=== PATIENT | female | born 1935 | race Caucasian/White ===

== ENCOUNTER 2019-10-12 06:18 | Inpatient (IN) | payer MEDICARE, OTHER ==
[~2019-10-12] VITALS: Ht 167.6 cm; Wt 66.7 kg
[~2019-10-12 06:18] MED LIST: ADULT LOW DOSE81 MG PO; ADVAIR HFA 45MC1 AER INH; AMBIEN; AMBIEN 5 MG TABL5 M1 PO; ASPIR 8181 MG PO; ATENOLOL 25 MG25 M1; AUGMENTIN 875875 MG PO; B COMPLEX-VITA1 EACH; BENTYL 10 MG CA10 M1 PO; CARVEDILOL3.125 MG PO; CARVEDILOL6.25 MG PO; CIPRO500 MG PO; D3 DOTS2000 UNIT PO; DIAZEPAM 5 MG5 M1; DYAZIDE 37.5-21 EACH PO; FLAGYL500 MG PO; FLEXERIL PO; FOSAMAX 70 MG T70 M1 PO; FOSAMAX 70 MG T70 MG PO; HYDREA 500 MG500 M1; HYDREA 500 MG500 M1 PO; HYDROCODONE-AP1 EAC6 PO; HYDROCODONE-APA1 TA1 PO; IBUPROFEN 800800 M1; IBUPROFEN 800800 M1 PO; IMODIUM A-D1 MG/5 ML; LIPITOR20 MG; LISINOPRIL10 MG PO; LISINOPRIL2.5 MG PO; MAXZIDE-25 MG1 EACH PO; MEDROLDOSEPACK PO; MOTION RELIEF25 MG PO; MUCINEX TA600 MG/TA2 PO; MULTI VITAMIN1 EACH; MULTIVITAMINS PO; NEXIUM40 MG PO; NORCO 5-325 TA1 EAC1 PO; NORCO 5-325 TA1 EACH PO; ONDANSETRON HCL4 M2 PO; OXYCODONE HCL5 M1; PAXIL 20 MG TAB20 M1; PAXIL10 MG PO; PAXIL20 MG PO; PHENERGAN 25 MG25 MG PO; PRAVASTATIN SOD40 MG PO; TESSALON PERLE100 MG PO; TRAMADOL 50 MG50 MG PO; TRIAMTERENE W/1 EACH; ULTRAM 50MG TAB50 MG PO; VICODIN 5-5001 EACH; VITAMIN D400 UNI1; XANAX 0.25 MG0.25 MG PO; ZOFRAN ODT4 MG PO
[2019-10-12 06:21] VITALS: BP 171/87
[2019-10-12 06:47] LABS: CALCIUM 9.3 mg/dL (8.5-10.1); POTASSIUM 4.1 mmol/L (3.5-5.1)
[2019-10-12 06:51] LABS: ALBUMIN 3.8 g/dL (3.4-5.0); TOTAL BILIRUBIN 0.5 mg/dL (<0.1-1.0); TOTAL PROTEIN 8.8 g/dL (6.4-8.2)
[2019-10-12 06:59] LABS: ABSOLUTE BASOPHILS 0.1 thou/uL (0.0-0.2); ABSOLUTE EOSINOPHILS 0.1 thou/uL (0.0-0.7); ABSOLUTE LYMPHOCYTES 1.6 thou/uL (0.8-5.3); ABSOLUTE MONOCYTES 0.4 thou/uL (0.0-1.2); ABSOLUTE NEUTROPHILS 2.9 thou/uL (1.6-8.1); BASOPHILS 1.4 %; EOSINOPHILS 1.4 %; HEMATOCRIT 49.6 % (37.0-47.0); HEMOGLOBIN 16.6 gm/dL (12.0-15.0); LYMPHOCYTES 32.6 %; MCH 31.3 pg (26.0-34.0); MCHC 33.5 g/dL (28.0-37.0); MCV 93.4 fL (80.0-100.0); MONOCYTES 7.6 %; MPV 7.2 fl. (7.2-11.1); NUCLEATED RBCS 0 /100WBC; PLATELET COUNT* 191 thou/uL (150-400); RDW-CV 23.1 % (10.5-14.5)
[2019-10-12 08:11] LABS: URINE BILIRUBIN NEGATIVE (Negative); URINE BLOOD TRACE (Negative); URINE CLARITY CLEAR; URINE COLOR YELLOW; URINE GLUCOSE-RANDOM NEGATIVE (Negative); URINE KETONES NEGATIVE (Negative); URINE LEUKOCYTES-REFLEX NEGATIVE (Negative); URINE NITRITE-REFLEX NEGATIVE (Negative); URINE PROTEIN NEGATIVE (Negative); URINE SPECIFIC GRAVITY <= 1.005 (1.005-1.030); URINE UROBILINOGEN 0.2 E.U./dl (0.2-1.0)
[2019-10-12 09:51] VITALS: BP 159/75
[2019-10-12 10:16] LABS: ANISOCYTOSIS 2+; PLATELET ESTIMATE ADEQUATE
[2019-10-12 10:17] LABS: GIANT PLATELETS OCCASIONAL
[2019-10-12 10:35] VITALS: BP 143/50
[2019-10-12 16:00] VITALS: BP 134/62
[2019-10-12 16:38] LABS: INFLUENZA A ANTIGEN Negative (Negative); INFLUENZA B ANTIGEN Negative (Negative)
[2019-10-12] MEDS ORDERED: SIKLOS100 MG PO (16:42)
[2019-10-12 19:40] VITALS: BP 143/69
[2019-10-13 04:06] LABS: ABSOLUTE EOSINOPHILS 0.1 thou/uL (0.0-0.7); ABSOLUTE MONOCYTES 0.4 thou/uL (0.0-1.2); ABSOLUTE NEUTROPHILS 2.4 thou/uL (1.6-8.1); BASOPHILS 1.2 %; EOSINOPHILS 1.3 %; HEMATOCRIT 41.1 % (37.0-47.0); LYMPHOCYTES 25.9 %; MCH 31.3 pg (26.0-34.0); MCHC 33.3 g/dL (28.0-37.0); MCV 93.9 fL (80.0-100.0); MONOCYTES 9.8 %; MPV 7.2 fl. (7.2-11.1); NUCLEATED RBCS 0 /100WBC; PLATELET COUNT* 157 thou/uL (150-400); POLYS 61.8 %; RBC 4.37 mil/uL (4.20-5.00); WBC 3.9 thou/uL (4.0-11.0)
[2019-10-13 04:24] LABS: CALCIUM 7.8 mg/dL (8.5-10.1); CREATININE 0.8 mg/dL (0.6-1.3); POTASSIUM 3.8 mmol/L (3.5-5.1); TOTAL BILIRUBIN 0.5 mg/dL (<0.1-1.0); TOTAL PROTEIN 6.9 g/dL (6.4-8.2)
[2019-10-13 04:32] LABS: HEMOGLOBIN 13.7 gm/dL (12.0-15.0)
[2019-10-13 07:14] LABS: PLATELET ESTIMATE ADEQUATE
[2019-10-13 08:10] VITALS: BP 133/74
--- NOTE | 2019-10-13 15:05 | EKG ---
[place] [address] ELECTROCARDIOGRAM REPORT Name: MACKENZIE STODDARD Room: [address] IN .R.#: [id number] Admission: 10/12/19 Attend Phys: Jeff Moncada Discharge: 10/14/19 Date of : 31 Date of Service: 10/12/19 0631 Report #: [id number] THIS REPORT FOR: //name// [facility] ED Test Date: 2019-10-12 Test Time: 06:31:15 Pat Name: MACKENZIE STODDARD Department: Room: 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: ROCIO : 1935 Requested By: Yan Paz Order Number: [id number] MD: Wu Ren Measurements Intervals [place] Rate: 68 P: 55 [place]: 198 QRS: -58 QRSD: 140 T: 127 QT: 412 QTc: 439 Interpretive Statements Sinus rhythm Left bundle branch block Compared to ECG 05/23/2019 04:17:28 Ventricular premature complex(es) no longer present First degree AV block no longer present Electronically Signed On 10-13-2019 15:04:04 GOLF C[employer] REPAIRER by Wu Ren [email or web address] <ELECTRONICALLY SIGNED> By: Vishnu Ren MD, [facility] 10/13/19 1504 Vishnu Ren MD, [facility] /EPI
[2019-10-13 19:40] VITALS: BP 125/70
[2019-10-14 07:37] VITALS: BP 140/68
[2019-10-14 10:17] LABS: HEMATOCRIT 42.7 % (37.0-47.0); HEMOGLOBIN 13.9 gm/dL (12.0-15.0); MCH 30.9 pg (26.0-34.0); MCHC 32.6 g/dL (28.0-37.0); MCV 94.9 fL (80.0-100.0); MPV 7.5 fl. (7.2-11.1); NUCLEATED RBCS 0 /100WBC; PLATELET COUNT* 163 thou/uL (150-400); RDW-CV 22.5 % (10.5-14.5); WBC 4.7 thou/uL (4.0-11.0)
[2019-10-14] MEDS ORDERED: SENNA-TIME S T1 EACH PO (10:17)
[2019-10-14] MEDS ORDERED: METRONIDAZOLE500 M4 PO (10:17)
[2019-10-14] MEDS ORDERED: CIPRO500 MG PO (10:17)
[2019-10-14 10:30] LABS: CALCIUM 8.1 mg/dL (8.5-10.1); CREATININE 1.1 mg/dL (0.6-1.3); POTASSIUM 3.6 mmol/L (3.5-5.1)
[2019-10-14 10:50] LABS: ABSOLUTE LYMPHOCYTES 0.9 thou/uL (0.8-5.3); ABSOLUTE MONOCYTES 0.3 thou/uL (0.0-1.2); ABSOLUTE NEUTROPHILS 3.4 thou/uL (1.6-8.1); PLATELET ESTIMATE ADEQUATE
[2019-10-14 10:51] LABS: ANISOCYTOSIS 1+; LARGE PLATELETS RARE; POIKILOCYTOSIS 1+
[2019-10-14 11:14] VITALS: BP 140/68
[2019-10-14 14:20] VITALS: BP 140/68
== END 2019-10-14 14:20 | disposition home health service (06) | DRG 372 ==
LOC: M.ERS 06:18 → M.3W 08:58 → M.TBA-ER 08:58 → M.3W 09:53
PROVIDERS: Emergency Medicine Emergency Medical Services; ADMIT Internal Medicine
DX: A04.8 Other specified bacterial intestinal infections (principal); E44.0 Moderate protein-calorie malnutrition; I10 Essential (primary) hypertension; F32.9 Major depressive disorder, single episode, unspecified; D47.3 Essential (hemorrhagic) thrombocythemia; K59.00 Constipation, unspecified; M81.0 Age-related osteoporosis without current pathological fracture; K12.0 Recurrent oral aphthae; Z90.710 Acquired absence of both cervix and uterus; Z79.82 Long term (current) use of aspirin; Z79.899 Other long term (current) drug therapy; Z88.5 Allergy status to narcotic agent; Z72.89 Other problems related to lifestyle; Z68.23 Body mass index [BMI] 23.0-23.9, adult

== ENCOUNTER 2019-10-27 10:56 | Inpatient (IN) | payer MEDICARE, OTHER ==
[~2019-10-27] VITALS: Ht 170.2 cm; Wt 68.6 kg
--- NOTE | ~2019-10-27 | CON ---
[address] [address] CONSULTATION Name: ARLYNLEOBARDOLISA Padron Room: [address] IN .R.#: [id number] Admission: 10/27/19 Attend Phys: Sj Richards MD Discharge: Date of : 31 Report #: [id number] THIS REPORT FOR: //name// cc: Kristie Multani Mohammad K. DO ~ THIS REPORT FOR: //name// CC: Sj Multani DO DICTATED BY: Sandrine Gan [facility] DATE OF SERVICE: 10/28/2019 Please note at the time of this dictation, the patient was seen and physically examined by myself. REASON FOR CONSULTATION: Ongoing nausea, altered bowel patterns with some diarrhea and abdominal pain. HISTORY OF PRESENT ILLNESS: This is an 84-year-old female who states she has not been feeling well since 08/28/2019. She states she has lost about 20 pounds. Since that time, she has not had much of an appetite. She states she has been having nausea. She does not have any vomiting until she came to the Emergency Room on 10/14/2019 in which a CAT scan was done that showed mild colitis in the distal transverse colon to distal sigmoid. She does not recall if she was sent home with any medicines. She states she has been having issues with her bowels. She states they are very hard and dry. She will have pellets initially and then she will have a normal stool been followed with diarrhea. She states that this has been ongoing now since the first of the year. She denies any fever or chills. She states prior to this admission, she was making breakfast and she had a syncopal episode in which she passed out. She found herself on the floor as she is not sure how long she had been passed out. She states she has been very weak and nauseous and diarrhea, prompting her to come in to be seen. She has been evaluated by Neuro and feeling taking orthostatic BPs, no further evaluation at this time. The patient did have a colonoscopy with us back in 2005 and everything was completely normal. It was noted back in 2016 that she was last seen in the office and had C. diff. ALLERGIES: CODEINE AND FENTANYL. MEDICATIONS: From home, metronidazole, senna, Fosamax, Maxzide, Zestril, Paxil, aspirin, lisinopril, carvedilol, hydra packs, Ambien, Flexeril, Coreg, Bentyl, tramadol, [place] [address] CONSULTATION Name: MACKENZIE STODDARD Room: [address] IN ..#: [id number] Admission: 10/27/19 Attend Phys: Sj Richards MD Discharge: Date of : 31 Report #: [id number] PAST MEDICAL HISTORY: Hypertension, history of Clostridium difficile, history of thrombocytopenia. PAST SURGICAL HISTORY: Hysterectomy secondary to cervical cancer. She had a dental procedure in September, left hip replacement and right broken leg in 2001. FAMILY HISTORY: Maternal side breast cancer. SOCIAL HISTORY: Lives alone. Denies any alcohol, tobacco or illegal drug use. REVIEW OF SYSTEMS: Twelve-point review of systems is essentially negative except what is mentioned in the HPI. PHYSICAL EXAMINATION: VITAL SIGNS: Temperature 36.5, pulse 66, respirations 20, blood pressure 115/46. HEART: Regular rate and rhythm. LUNGS: Diminished, but clear. ABDOMEN: Soft, positive bowel sounds in all 4 quadrants with some mild tenderness noted in the lower quadrants. LABORATORY DATA: Hemoglobin on admission was 14.8, she is 12.8 with no obvious bright red blood or melanotic stool noted. White count is 4.4, platelets 248, BUN is 24, creatinine is 1.1, GFR is 47. PT is 10.9, INR is 1.1. IMPRESSION: 1. Abdominal pain. 2. Nausea and vomiting, only nausea on this admission, vomiting on previous admission. 3. Altered bowel patterns, constipation to diarrhea. 4. Weight loss of [address] from 10/14/2019 indicating colitis. 6. Personal history of Clostridium difficile. 7. Personal history of cervical cancer. 8. Family history of breast cancer. PLAN: 1. EGD tomorrow with Dr. Rm. 2. We will need to wait on colon until she is able to tolerate prep orally. 3. Further recommendations to be made after Dr. Rm sees [place] [address] CONSULTATION Name: LEOBARDO STODDARDLISA Nereida Room: [address] IN M.R.#: [id number] Admission: 10/27/19 Attend Phys: Sj Richards MD Discharge: Date of : 31 Report #: [id number] Thank you for allowing us to participate in this patient's care. Please do not hesitate to call with any questions in regard to this consult. By: 1155 0123Donnie Rm MD /nt
[~2019-10-27 10:56] MED LIST changes: -D3 DOTS2000 UNIT PO; +D3 DOTS50 MCG PO; +METRONIDAZOLE500 M4 PO; +SENNA-TIME S T1 EACH PO; +SIKLOS100 MG PO
[2019-10-27 11:04] VITALS: BP 147/53
[2019-10-27 11:36] LABS: ABSOLUTE BASOPHILS 0.6 thou/uL (0.0-0.2); ABSOLUTE LYMPHOCYTES 1.2 thou/uL (0.8-5.3); ABSOLUTE MONOCYTES 0.4 thou/uL (0.0-1.2); ABSOLUTE NEUTROPHILS 2.8 thou/uL (1.6-8.1); EOSINOPHILS 0.9 %; HEMATOCRIT 44.7 % (37.0-47.0); HEMOGLOBIN 14.8 gm/dL (12.0-15.0); LYMPHOCYTES 24.2 %; MCH 31.2 pg (26.0-34.0); MCHC 33.1 g/dL (28.0-37.0); MCV 94.4 fL (80.0-100.0); MONOCYTES 8.2 %; MPV 7.3 fl. (7.2-11.1); NUCLEATED RBCS 0 /100WBC; PLATELET COUNT* 312 thou/uL (150-400); POLYS 54.7 %; RBC 4.74 mil/uL (4.20-5.00); RDW-CV 23.5 % (10.5-14.5)
[2019-10-27 11:45] LABS: CREATININE 1.1 mg/dL (0.6-1.3); POTASSIUM 4.3 mmol/L (3.5-5.1)
[2019-10-27 11:49] LABS: ALBUMIN 3.7 g/dL (3.4-5.0); TOTAL BILIRUBIN 0.6 mg/dL (<0.1-1.0); TOTAL PROTEIN 8.3 g/dL (6.4-8.2)
[2019-10-27 12:06] LABS: INR 1.1; PROTIME 10.9 Seconds (9.20-11.50)
[2019-10-27 13:46] LABS: URINE BILIRUBIN NEGATIVE (Negative); URINE BLOOD NEGATIVE (Negative); URINE CLARITY CLEAR; URINE COLOR YELLOW; URINE GLUCOSE-RANDOM NEGATIVE (Negative); URINE KETONES TRACE (Negative); URINE LEUKOCYTES-REFLEX NEGATIVE (Negative); URINE NITRITE-REFLEX NEGATIVE (Negative); URINE PROTEIN NEGATIVE (Negative); URINE UROBILINOGEN 0.2 E.U./dl (0.2-1.0)
[2019-10-27 15:40] VITALS: BP 124/46
[2019-10-27 15:47] VITALS: BP 143/53
[2019-10-27 20:00] VITALS: BP 113/56
[2019-10-28] VITALS (8 sets, daily range): BP systolic 103–140; BP diastolic 37–63
[2019-10-28 04:20] LABS: ABSOLUTE BASOPHILS 0.1 thou/uL (0.0-0.2); ABSOLUTE EOSINOPHILS 0.1 thou/uL (0.0-0.7); ABSOLUTE LYMPHOCYTES 1.4 thou/uL (0.8-5.3); ABSOLUTE MONOCYTES 0.4 thou/uL (0.0-1.2); ABSOLUTE NEUTROPHILS 2.5 thou/uL (1.6-8.1); BASOPHILS 1.3 %; EOSINOPHILS 1.4 %; HEMATOCRIT 38.4 % (37.0-47.0); LYMPHOCYTES 32.3 %; MCH 31.7 pg (26.0-34.0); MCHC 33.3 g/dL (28.0-37.0); MCV 95.1 fL (80.0-100.0); MONOCYTES 8.2 %; MPV 6.9 fl. (7.2-11.1); NUCLEATED RBCS 0 /100WBC; POLYS 56.8 %; RBC 4.04 mil/uL (4.20-5.00); RDW-CV 23.2 % (10.5-14.5); WBC 4.4 thou/uL (4.0-11.0)
[2019-10-28 04:26] LABS: HEMOGLOBIN 12.8 gm/dL (12.0-15.0)
[2019-10-28 04:29] LABS: CALCIUM 7.9 mg/dL (8.5-10.1); CREATININE 1.1 mg/dL (0.6-1.3); POTASSIUM 3.9 mmol/L (3.5-5.1)
[2019-10-28 06:29] LABS: GIANT PLATELETS RARE; PLATELET ESTIMATE ADEQUATE
[2019-10-28 06:30] LABS: ANISOCYTOSIS 1+
[2019-10-28 06:55] LABS: PLATELET COUNT* 248 thou/uL (150-400)
[2019-10-28] MEDS ORDERED: CALCIUM500 MG PO (10:55)
--- NOTE | 2019-10-28 12:10 | 2DMMODE ---
[place] [address] 2 D/M-MODE ECHOCARDIOGRAM Name: DARIUS STODDARDCAROLINEUriah Nereida Room: [address] [facility]#: [id number] Admission: 10/27/19 Attend Phys: Sj Richards, Discharge: Date of : 31 Date of Service: 10/28/19 1209 Report #: [id number] THIS REPORT FOR: cc: Kristie Multani Mohammad K. DO Blick, David R. MD [facility] ~ APPROVED REPORT Study performed: 10/28/2019 10:52:05 EXAM: Comprehensive 2D, Doppler, and color-flow Echocardiogram Patient Location: In-Patient Room #: [facility] Status: routine BSA: 1.73 HR: 56 bpm BP: 115/46 mmHg Rhythm: NSR Other Information Study Quality: Good Indications Syncope 2D Dimensions IVSd: 11.86 (7-11mm) LVOT Diam: 19.09 (18-24mm) LVDd: 47.91 mm PWd: 10.97 (7-11mm) Ascending Ao: 26.65 (22-36mm) LVDs: 27.26 (25-40mm) Aortic Root: 24.83 mm Volumes Left Atrial Volume (Systole) LA ESV Index: 18.30 mL/m2 Aortic Valve AoV Peak Yeyo.: 1.60 m/s AO Peak Gr.: 10.18 mmHg LVOT Max P.62 mmHg AO Mean Gr.: 5.79 mmHg LVOT Mean P.28 mmHg LVOT Max V: 0.81 m/s AO V2 VTI: 34.56 cm LVOT Mean V: 0.52 m/s GALILEO (VTI): 1.47 cm2 LVOT V1 VTI: 17.80 [place] [address] 2 D/M-MODE ECHOCARDIOGRAM Name: MACKENZIE STODDARD Room: [address] IN [facility]#: [id number] Admission: 10/27/19 Attend Phys: Sj Richards, Discharge: Date of : 31 Date of Service: 10/28/19 1209 Report #: [id number] Mitral Valve E/A Ratio: 0.65 MV Decel. Time: 198.91 ms MV E Max Yeyo.: 0.48 m/s MV PHT: 57.68 ms MVA (PHT): 3.81 cm2 TDI E/Lateral E': 6.00 E/Medial E': 6.86 Medial E' Yeyo.: 0.07 m/s Lateral E' Yeyo.: 0.08 m/s Pulmonary Valve PV Peak Yeyo.: 0.80 m/s PV Peak Gr.: 2.58 mmHg Tricuspid Valve RAP Estimate: 5.00 mmHg TR Peak Gr.: 28.66 mmHg RVSP: 33.00 mmHg PA Pressure: 33.00 mmHg Left Ventricle The left ventricle is normal size. There is normal LV segmental wall motion. There is normal left ventricular wall thickness. Left ventricular systolic function is normal. The left ventricular ejection fraction is within the normal range. LVEF is 60-65%. Grade I - abnormal relaxation pattern. Right Ventricle The right ventricle is normal size. The right ventricular systolic function is normal. Atria The left atrium size is normal. The right atrium size is normal. Aortic Valve Mild aortic valve sclerosis. Mild aortic regurgitation. Mild aortic stenosis. Mitral Valve The mitral valve is normal in structure. There is no mitral valve regurgitation noted. No evidence of mitral valve stenosis. Tricuspid Valve The tricuspid valve is normal in structure. Trace tricuspid regurgitation. estimated pa pressure 35 [place] [address] 2 D/M-MODE ECHOCARDIOGRAM Name: MACKENZIE STODDARD Room: [address] [place] [facility]#: [id number] Admission: 10/27/19 Attend Phys: Sj Richards, Discharge: Date of : 31 Date of Service: 10/28/19 1209 Report #: [id number] Pulmonic Valve The pulmonary valve is normal in structure. There is no pulmonic valvular regurgitation. Great Vessels The aortic root is normal in size. IVC is normal in size and collapses >50% with inspiration. Pericardium There is no pericardial effusion. <Conclusion> LVEF is 60-65%. Mild aortic valve sclerosis. Mild aortic regurgitation. <ELECTRONICALLY SIGNED> By: Amado Peng MD, FACC 10/28/19 1209 1209 1209 Amado Peng MD, FACC /INF
[2019-10-29 00:10] VITALS: BP 145/62
[2019-10-29 04:00] VITALS: BP 120/51
[2019-10-29 04:30] LABS: ABSOLUTE BASOPHILS 0.1 thou/uL (0.0-0.2); ABSOLUTE EOSINOPHILS 0.1 thou/uL (0.0-0.7); ABSOLUTE LYMPHOCYTES 1.3 thou/uL (0.8-5.3); ABSOLUTE MONOCYTES 0.3 thou/uL (0.0-1.2); ABSOLUTE NEUTROPHILS 2.3 thou/uL (1.6-8.1); BASOPHILS 1.5 %; EOSINOPHILS 1.4 %; HEMATOCRIT 38.6 % (37.0-47.0); HEMOGLOBIN 12.6 gm/dL (12.0-15.0); LYMPHOCYTES 31.7 %; MCHC 32.7 g/dL (28.0-37.0); MCV 94.9 fL (80.0-100.0); MONOCYTES 6.7 %; NUCLEATED RBCS 0 /100WBC; PLATELET COUNT* 243 thou/uL (150-400); POLYS 58.7 %; RBC 4.07 mil/uL (4.20-5.00); RDW-CV 23.8 % (10.5-14.5)
[2019-10-29 04:53] LABS: CALCIUM 8.3 mg/dL (8.5-10.1); CREATININE 1.1 mg/dL (0.6-1.3)
[2019-10-29 06:23] LABS: ANISOCYTOSIS 2+
[2019-10-29 08:00] VITALS: BP 132/66
[2019-10-29 12:00] VITALS: BP 148/62
[2019-10-29 16:00] VITALS: BP 146/62
[2019-10-29 20:00] VITALS: BP 135/63
[2019-10-30] VITALS (7 sets, daily range): BP systolic 99–138; BP diastolic 50–67
[2019-10-30] MEDS ORDERED: PRINIVIL5 MG PO (09:49)
[2019-10-30] MEDS ORDERED: PROTONIX40 M1 PO (09:49)
--- NOTE | 2019-10-31 13:08 | PATH ---
[address] [address] PATHOLOGY RPT PROCEDURE Name: MINESH RODRIGUEZ Room: [address] IN .R.#: [id number] Admission: 10/27/19 Date of : 31 Discharge: 10/30/19 Report #: [id number] Path Case #: [id number] [facility] Accession Number: [id number] . 01 Material submitted: . PART A: stomach - GASTRIC BIOPSY PART B: duodenum - DUODENAL BIOPSY . 01 Clinical history: . A. H. pylori . 02 Diagnosis: A. Gastric biopsy: - Mild non-specific chronic gastritis, negative for Helicobacter pylori organisms and dysplasia. . B. Duodenal biopsy: - Mild non-specific active duodenitis, negative for granulomas, viral inclusions, significant intraepithelial lymphocytosis/villous atrophy and dysplasia. (FRANKY/db; 10/31/2019) LBQ 10/31/2019 1024 Local . 02 Comment: Special stain on A: H. pylori immuno . 02 Electronically signed: . Merrill Katz MD, Pathologist NPI- [id number] . 01 Gross description: . A. The specimen is received in formalin, labeled "Minesh Rodriguez, gastric biopsy, H. pylori". Received are two segments of pale head soft tissue ranging in size from 0.3 to 0.5 cm in maximum dimensions. The specimen is submitted entirely in cassette A1. . B. The specimen is received in formalin, labeled "Minesh Rodriguez, duodenal biopsy". Received are three segments of pale head soft tissue ranging in size from 0.2 to 0.3 cm in maximum dimensions. The specimen is submitted entirely in cassette B1. (CAA; 10/30/2019) QAC/QAC 10/30/2019 1622 Local . 02 Pathologist provided ICD-10: K29.50, K29.80 . 02 CPT . 923264, 063332, H56350 [place] [address] PATHOLOGY RPT PROCEDURE Name: LEOBARDO RODRIGUEZLISA Padron Room: [address] IN ..#: [id number] Admission: 10/27/19 Date of : 31 Discharge: 10/30/19 Report #: [id number] Path Case #: [id number] Specimen Comment: A courtesy copy of this report has been sent to [phone] Specimen Comment: [phone], Specimen Comment: Report sent to ,DR GILL / DR SMITH Performed at: [address], [place], [place] [id number] MD Jordi Mistry MD Phone: [phone] Performed at: [address] [address] Priscilla Castellanos, [place], [place] [id number] MD Merrill Katz MD Phone: [phone]
--- NOTE | 2019-11-01 14:59 | EKG ---
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
== END 2019-10-30 12:50 | disposition home health service (06) | DRG 641 ==
LOC: M.ERS 10:56 → M.2W 12:43 → M.TBA-ER 12:43 → M.2W 15:48
PROVIDERS: Family Medicine; ADMIT Internal Medicine
PROC: 0DB78ZX Excision of Stomach, Pylorus, Via Natural or Artificial Opening Endoscopic, Diagnostic (ICD-10-PCS; principal; 2019-10-29)
PROC: 0DB98ZX Excision of Duodenum, Via Natural or Artificial Opening Endoscopic, Diagnostic (ICD-10-PCS; 2019-10-29)
DX: E86.0 Dehydration (principal); K29.00 Acute gastritis without bleeding; K52.9 Noninfective gastroenteritis and colitis, unspecified; F41.9 Anxiety disorder, unspecified; F32.9 Major depressive disorder, single episode, unspecified; Z96.642 Presence of left artificial hip joint; R63.4 Abnormal weight loss; I10 Essential (primary) hypertension; Z87.891 Personal history of nicotine dependence; Z90.710 Acquired absence of both cervix and uterus; Z79.82 Long term (current) use of aspirin; Z79.899 Other long term (current) drug therapy; Z88.5 Allergy status to narcotic agent; Z88.8 Allergy status to other drugs, medicaments and biological substances; Z85.41 Personal history of malignant neoplasm of cervix uteri; Z80.3 Family history of malignant neoplasm of breast; Z68.23 Body mass index [BMI] 23.0-23.9, adult

== ENCOUNTER 2019-12-14 08:20 | Inpatient (IN) | payer MEDICARE, OTHER ==
[~2019-12-14] VITALS: Ht 170.2 cm; Wt 64.1 kg
--- NOTE | ~2019-12-14 | CON ---
[address] [address] CONSULTATION Name: DARIUS STODDARDCAROLINEUriah Padron Room: [address] IN M.R.#: [id number] Admission: 12/14/19 Attend Phys: Sj Richards MD Discharge: Date of : 31 Report #: [id number] THIS REPORT FOR: //name// cc: ERICKSON Wharton family physician/PCP ERICKSON - No family physician/PCP ~ THIS REPORT FOR: //name// CC: Sj Richards MD [facility] physician/PCP Kristie Multani DO DATE OF SERVICE: 12/14/2019 REFERRING PHYSICIAN: Dr. Sj Richards. REASON FOR CONSULTATION: Recurrent nausea and vomiting. IMPRESSION: 1. Recurrent nausea and vomiting with early satiety of uncertain etiology. 2. Recently diagnosed peptic ulcer disease for which the patient was on Protonix, but had stopped after 1 month's time. 3. Dehydration secondary to recurrent nausea and vomiting with early satiety of uncertain etiology. 4. Epigastric pain with recently diagnosed peptic ulcer disease with Helicobacter pylori negative. 5. Essential thrombocythemia. RECOMMENDATIONS: 1. We will begin the patient on clear liquid diet at this point in time and proceed with upper endoscopy tomorrow morning to evaluate status of her peptic ulcer disease. 2. If this is unrevealing, will likely schedule for a 4-hour gastric emptying scan to be done on Monday, 12/15. 3. At this point, there is no indication that she needs to have a colonoscopy at this time. I have discussed the plans with the patient as well and she is agreeable to the same. HISTORY OF PRESENT ILLNESS: The patient is a very pleasant 84-year-old very spry white female who was recently hospitalized in early October with complaints of losing 20 pounds and not having much of an appetite. She also had persistent nausea. She did not have any vomiting. There was suggestion that there may be on a CT scan that she had done that she may have some colitis, but she does not recall any issues related to the same. She normally has tendency towards constipation. She was admitted to the hospital at that time and underwent upper endoscopy, which revealed a shallow ulceration for which she was placed [place] [address] CONSULTATION Name: MACKENZIE STODDARD Room: [address] IN [facility]#: [id number] Admission: 12/14/19 Attend Phys: Sj Richards MD Discharge: Date of : 33 Report #: [id number] home on some Protonix. She took the Protonix for a month and completed it, but did not continue the medication. She is now here because she has had persistent issues with vomiting and not much of an appetite. She just gets full quicker than normal and has not done well because of the same. She has no other issues at this time. ALLERGIES: CODEINE AND FENTANYL. CURRENT MEDICATIONS: Include, she was supposed to be on Protonix, but has only got 30 days of it. She is on lisinopril. She does take senna to help keep her bowels moving. She takes triamterene/hydrochlorothiazide, aspirin, carvedilol, Hydrea, Paxil, vitamin D3, Flexeril, Fosamax, Bentyl, calcium, Ultram, Xanax. PAST MEDICAL AND SURGICAL HISTORY: Remarkable for underlying hypertension, history of essential thrombocythemia. She has some problems with anxiety, depression, chronic pain and back pain. She has had hip replacement and recently gastric ulcers. She has a history of C. diff in 2017. Her last colonoscopy was done by me in 2005 and was unremarkable. SOCIAL HISTORY: The patient does not smoke or drink. FAMILY HISTORY: Negative. PHYSICAL EXAMINATION: GENERAL: A pleasant 84-year-old spry white female who is awake and alert. CARDIOPULMONARY: Revealed a regular rate and rhythm. LUNGS: Clear. ABDOMEN: Soft and not tender. No rebound or guarding noted. LABORATORY DATA: From admission revealed a white count of 6.4, hemoglobin 14.8, platelet count 414,000, MCV is 94.1 and RDW is 21.9. Differential is normal. Sodium 139, potassium 3.7, chloride 103, bicarbonate is 30, BUN is 23, creatinine 1.0 for GFR of 53. Total bilirubin 0.5, alkaline phosphatase is 82, AST 22, ALT 18, her albumin is 3.4. CT scan of the abdomen and pelvis with contrast suggested maybe some gastric wall thickening, but was otherwise unremarkable. Her colon revealed stool throughout the colon without obstruction. DISCUSSION: At the present time, the patient has had problem with recurrent nausea, vomiting and epigastric pain. We will proceed with upper endoscopy to make sure everything is healed. If it is unrevealing, get her set up for an [address] [place] [address] CONSULTATION Name: MACKENZIE STODDARD Room: [address] IN M.R.#: [id number] Admission: 12/14/19 Attend Phys: Sj Richards MD Discharge: Date of : 31 Report #: [id number] emptying scan to be done on Monday. I have discussed the plans with the patient as well and she is agreeable to the same. By: 0809 0827Eron Barker DO /jerel
[~2019-12-14 08:20] MED LIST changes: +CALCIUM500 MG PO; -CARVEDILOL6.25 MG PO; +COREG6.25 MG PO; +PRINIVIL5 MG PO; +PROTONIX40 M1 PO
[2019-12-14 08:22] VITALS: BP 179/75
[2019-12-14 08:50] LABS: HEMOGLOBIN 14.8 gm/dL (12.0-15.0); MCH 31.6 pg (26.0-34.0); MCHC 33.6 g/dL (28.0-37.0); MCV 94.1 fL (80.0-100.0); MPV 7.9 fl. (7.2-11.1); NUCLEATED RBCS 0 /100WBC; PLATELET COUNT* 414 thou/uL (150-400); RBC 4.68 mil/uL (4.20-5.00); RDW-CV 21.9 % (10.5-14.5); WBC 6.4 thou/uL (4.0-11.0)
[2019-12-14 08:56] LABS: CALCIUM 9.1 mg/dL (8.5-10.1); POTASSIUM 3.7 mmol/L (3.5-5.1)
[2019-12-14 09:01] LABS: ALBUMIN 3.4 g/dL (3.4-5.0); TOTAL BILIRUBIN 0.5 mg/dL (<0.1-1.0); TOTAL PROTEIN 7.7 g/dL (6.4-8.2)
[2019-12-14 09:35] LABS: ABSOLUTE EOSINOPHILS 0.1 thou/uL (0.0-0.7); ABSOLUTE LYMPHOCYTES 1.2 thou/uL (0.8-5.3); ABSOLUTE MONOCYTES 0.4 thou/uL (0.0-1.2); ABSOLUTE NEUTROPHILS 4.7 thou/uL (1.6-8.1)
[2019-12-14 09:36] LABS: ANISOCYTOSIS 1+; PLATELET ESTIMATE INCREASED; POIKILOCYTOSIS 1+
[2019-12-14 09:38] LABS: URINE BILIRUBIN NEGATIVE (Negative); URINE BLOOD NEGATIVE (Negative); URINE CLARITY CLEAR; URINE COLOR YELLOW; URINE GLUCOSE-RANDOM NEGATIVE (Negative); URINE KETONES NEGATIVE (Negative); URINE LEUKOCYTES-REFLEX NEGATIVE (Negative); URINE NITRITE-REFLEX NEGATIVE (Negative); URINE PROTEIN NEGATIVE (Negative); URINE SPECIFIC GRAVITY 1.015 (1.005-1.030); URINE UROBILINOGEN 0.2 E.U./dl (0.2-1.0)
--- NOTE | 2019-12-14 10:01 | NUR ---
RN SPOKE WITH DPOA REGARDING PT UPDATE
[2019-12-14 12:29] VITALS: BP 171/65
[2019-12-14 12:47] VITALS: BP 174/71
[2019-12-14] MEDS ORDERED: BUSPIRONE HCL5 MG PO (13:15)
[2019-12-14 16:00] VITALS: BP 159/61
--- NOTE | 2019-12-14 16:31 | NUR ---
RECEIEVIED REPORT FROM ÁNGELA RN IN ER OF EXPECTED ADMISSION AT 1208- DX: N/V- PT ARRIVED TO UNIT ROOM 205 VIA CART AT 1220- SBA TO BED- EXECUTIVE CONSULTANT PLACED ORDERED, TRACING SR/1ST DEGREE/BBB- PT A&O X4- CONT OF BOWEL AND BLADDER- LCTA, RESP EVEN AND UN-LABORED- VS 97.34 18 174/71 65 95% ON RA- ABD SOFT/ROUND/NON-TENDER, BS X4 QUADS- PT DENIES ANY C/O PAIN/NAUSEA AT TIME OF ADMISSION- IV TO LEFT AC NOTED TO BE HALF OUT, NEW [address] TO LEFT FA, IVF INFUSSING PRESCRIBED- FAIR PO INTAKE NOTED WITH LUNCH- GI CONSULTED WITH PLANS FOR EGD IN AM, PT TO BE NPO AT MIDNIGHT- TROP NOTED TO TREN UP THIS SHIFT WITH LASTEST AT 0.20, NOTIFIED WITH ORDERED NOTED TO CONSULT CARDIO- CARDIO CONSULTED WITH RETURN PHONE CALL RECEIVIED FROM AND ORDERED RECEIVIED TO OBTAIN ANOTHER TROP AT 1830 AND EKG IN AM- CLEAR LIQUID DIET IN PLACE INDICATED- BLANCHABLE REDNESS NOTED TO BOTTOM- CALL LIGHT AND PERSONAL BELONGINGS WITH IN REACH- PT MAKES NEEDS KNOWN- ALL NEEDS MET AT THIS TIME-WCTM
[2019-12-14 20:00] VITALS: BP 114/50; BP 132/83
[2019-12-15] VITALS: BP 127/67
[2019-12-15 04:00] VITALS: BP 151/59
[2019-12-15 05:08] LABS: ABSOLUTE EOSINOPHILS 0.1 thou/uL (0.0-0.7); ABSOLUTE LYMPHOCYTES 1.1 thou/uL (0.8-5.3); ABSOLUTE MONOCYTES 0.4 thou/uL (0.0-1.2); ABSOLUTE NEUTROPHILS 4.1 thou/uL (1.6-8.1); BASOPHILS 0.5 %; EOSINOPHILS 1.3 %; HEMATOCRIT 37.4 % (37.0-47.0); LYMPHOCYTES 19.7 %; MCH 31.6 pg (26.0-34.0); MCHC 32.8 g/dL (28.0-37.0); MCV 96.2 fL (80.0-100.0); MONOCYTES 7.2 %; MPV 8.3 fl. (7.2-11.1); NUCLEATED RBCS 0 /100WBC; PLATELET COUNT* 349 thou/uL (150-400); POLYS 71.3 %; RBC 3.89 mil/uL (4.20-5.00); RDW-CV 22.5 % (10.5-14.5); WBC 5.7 thou/uL (4.0-11.0)
[2019-12-15 05:37] LABS: ALBUMIN 2.7 g/dL (3.4-5.0); CALCIUM 7.5 mg/dL (8.5-10.1); CREATININE 1.1 mg/dL (0.6-1.3); POTASSIUM 4.1 mmol/L (3.5-5.1); TOTAL BILIRUBIN 0.4 mg/dL (<0.1-1.0); TOTAL PROTEIN 6.3 g/dL (6.4-8.2); TROPONIN-I LEVEL 0.14 ng/mL (<0.06)
[2019-12-15 05:51] LABS: HEMOGLOBIN 12.3 gm/dL (12.0-15.0)
[2019-12-15 07:38] VITALS: BP 156/60
[2019-12-15 08:08] LABS: ANISOCYTOSIS 2+; PLATELET ESTIMATE ADEQUATE
[2019-12-15 08:09] LABS: OVALOCYTES Occasional
[2019-12-15 08:11] LABS: POIKILOCYTOSIS 1+
--- NOTE | 2019-12-15 09:00 | NUR ---
ASSUMED CARE OF PT THIS AM AROUND 07- SMOKING PIPE LINER IN PLACE ORDERED, TRACING SR/1ST DEGREE/BBB- UPON ASSESSMENT PT NOTED TO BE RESTING IN BED- PT A&O X4, NOTED TO BE ANXIOUS THIS AM R/T PLANNED EGD TODAY- CONT OF B/B- SBA WITH TRANSFERS FOR SAFETY- LCTA, RESP EVEN AND UN-LABORED- VSS, O2 SAT 96% ON RA- ABD SOFT/ROUND/NON-TENDER, BS X4 QUADS- LAST BM REPORTED 12/13/19- IV NOTED TO LEFT FA INTACT, IVF INFUSSING ORDERED-PT CURRENLTY NPO FOR PLANNED EGD- CALL LIGHT AND PERSONAL BELONGINGS WITH IN REACH- PT MAKES NEEDS KNOWN- ALL NEEDS MET AT THIS TIME-WCTM
--- NOTE | 2019-12-15 10:22 | EKG ---
[place] [address] ELECTROCARDIOGRAM REPORT Name: MACKENZIE STODDARD Room: [address] ADM IN .R.#: [id number] Admission: 12/14/19 Attend Phys: Sj Richards, Discharge: Date of : 31 Date of Service: 12/14/19 0840 Report #: [id number] THIS REPORT FOR: //name// [facility] ED Test Date: 2019-12-14 Test Time: 08:40:43 Pat Name: MACKENZIE STODDARD Department: Room: [facility] Gender: F Trouble Tracer: : 1935 Requested By: Yan Paz Order Number: [id number] MD: Wu Ren Measurements Intervals [place] Rate: 61 P: 62 [place]: 197 QRS: -60 QRSD: 146 T: 101 QT: 443 QTc: 447 Interpretive Statements Sinus rhythm Left bundle branch block Compared to ECG 10/27/2019 11:08:30 No significant changes Electronically Signed On 12-15-2019 10:20:43 CDT by Wu Ren [email or web address] <ELECTRONICALLY SIGNED> By: Vishnu Ren MD, [facility] 12/15/19 1020 0840 Vishnu Ren MD, [facility] /EPI
--- NOTE | 2019-12-15 10:31 | CON ---
[address] [address] CONSULTATION Name: DARIUS STODDARDCAROLINEUriah Nereida Room: [address] IN M.R.#: [id number] Admission: 12/14/19 Attend Phys: Sj Richards MD Discharge: Date of : 31 Report #: [id number] THIS REPORT FOR: //name// cc: ERICKSON Wharton family physician/PCP ERICKSON Wharton family physician/PCP ~ THIS REPORT FOR: //name// CC: Sj Richards FAM physician/PCP CARDIOLOGY CONSULTATION HISTORY OF PRESENT ILLNESS: I was asked by Dr. Richards to see this 84-year-old white female in cardiology consultation for evaluation and treatment of an elevated troponin. This lady came to the Emergency Room for left lower quadrant pain. She has been having these pains on and off for some time. She was admitted and for reasons unclear to me, she had troponins drawn. She denies any chest pain with this event that brought her to the hospital, although she does have a history of chest pain. Her initial troponin was less than 0.06, subsequently it was 0.1 and then 0.2, then 0.18 and then early this morning at 3:36 a.m., it was 0.14. Her EKG on admission showed left bundle branch block, which is chronic. Her subsequent one is essentially unchanged from previous. She does have sinus rhythm with a heart rate of 61 initially and then this morning, it was 60. She does have a history of anxiety attacks for years. She has been worked up for that. She has had a nuclear stress test in the past as she is not sure whether she had an echo, however. She has also had monitors. She says when she gets these anxiety attacks, she has pain all over her body including her chest that she says is substernal and tightness sensation with burning and with a great deal of anxiety. Sometimes there is tachycardia with it. The discomfort is not worse with activity. She never gets discomfort with activities, but it is improved with the relaxing and rest. It may or may not occur at rest. There is associated shortness of breath and nausea with some sweating. It does seem to be aggravated by food. She does have a history of presumed reflux and of gastric ulcer. Her pain is not relieved by food. She has not tried nitroglycerin for her discomfort. The pain does radiate, but not just from the chest, it goes all over her body she says. She does have chronic dyspnea on exertion, but not orthopnea. She does wake up at night short of breath. She says these are her anxiety attacks, however. She does not have edema. She has had one episode of syncope. She said with an anxiety attack and a fall that was a year ago and she was apparently admitted to the hospital, worked up for that and apparently nothing was found. She has essential hypertension. She does have a past history of smoking. She quit many years ago. She does not have hypercholesterolemia or diabetes or family history of coronary artery disease. She has not had renal disease or peripheral vascular disease, never had a stroke or TIA or carotid disease. She does not have claudication or open or nonhealing wounds. The only heart problem she knows of is what she terms skipped beats. She is not sure there is a diagnosis for that, [address] [address] CONSULTATION Name: MACKENZIE STODDARD Room: [address] IN Luke#: [id number] Admission: 12/14/19 Attend Phys: Sj Richards MD Discharge: Date of : 31 Report #: [id number]. FAMILY HISTORY: Remarkable for no heart disease at all. There is no family history of sudden or heart attacks. Her mother did have lung cancer, however. This lady has apparently had gallbladder issues. SOCIAL HISTORY: She is . Does not smoke, drink or use illegal drugs. ALLERGIES: SHE IS ALLERGIC TO FENTANYL AND CODEINE WHICH CAUSES VOMITING. 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 She is unaware of what her blood disease is, however. She takes lisinopril 2.5 mg daily, Zofran 4 mg q. 8 hours p.r.n., Paxil 40 mg daily, extract of senna 1 tablet b.i.d., tramadol 50 mg q. 4 hours p.r.n. and Maxzide 25 mg 1 tablet daily. 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 REVIEW OF SYSTEMS: Positive for weight loss, sputum production, palpitations, chest discomfort, waking up short of breath, vomiting, vomiting blood. Note, she has had quite a bit of vomiting and nausea lately. She does have gastritis on her CT of her abdomen. She has a history of uterine cancer. Medical allergies of the above. Allergies are as above. She has a history of depression and anxiety. She wears glasses. She has decreased hearing and bleeding from her nose. PHYSICAL EXAMINATION: GENERAL: She presents as a well-developed, well-nourished white female, in no acute distress. VITAL SIGNS: Her pulse was 68 and regular, blood pressure is 156/60, respirations were 18 and regular, temperature is 97.6. She is 5 feet 7 inches tall and weighed 140 pounds this morning. HEENT: Her head was atraumatic. Eyes clear. NECK: Supple. There is no jugular venous distention or hepatojugular reflux. Thyroid is not enlarged. There is no adenopathy. SKIN: Warm and dry. Mucous membranes are moist. LUNGS: Clear to auscultation and percussion. HEART: Revealed normal first and second heart sound. There was no S4, no S3, no murmurs, rubs, thrills or heaves. The rhythm was regular and the rate was about approximately 60. PMI was not displaced. ABDOMEN: Soft, flat, nontender. There are no palpable masses, no organomegaly. EXTREMITIES: Reveal no cyanosis, clubbing or edema. NEUROLOGIC: The patient mentated normally, talked normally, [place] [address] CONSULTATION Name: MACKENZIE STODDARD Room: [address] IN [facility]#: [id number] Admission: 12/14/19 Attend Phys: Sj Richards MD Discharge: Date of : 31 Report #: [id number] She has not had a chest x-ray. We will get one. IMPRESSION: 1. Elevated troponin that is likely due to myocardial stress. I doubt myocardial infarction or non-ST segment elevation myocardial infarction. 2. Left bundle branch block. 3. Hypertension. 4. Anxiety with anxiety attacks. 5. Chest discomfort of uncertain cause, possibly due to her anxiety attacks. 6. Tachycardia spells. These are also likely due to her anxiety attacks. RECOMMENDATION: I think it is reasonable to proceed with her EGD today. I think she should, however, have further workup of her chest discomfort and presumed anxiety attacks. I would get a Lexiscan Cardiolite stress test and an echo and an outpatient monitor. Thank you very much for asking me to see the patient. If there are any questions, please feel free to contact me. <ELECTRONICALLY SIGNED> By: Vishnu Ren MD, FACC 12/15/19 1031 0941 [id number]. Wu Ren MD, FACC /nt
[2019-12-15 12:26] VITALS: BP 163/57
[2019-12-15 16:00] VITALS: BP 144/56
[2019-12-15 20:00] VITALS: BP 138/61
[2019-12-16] VITALS (7 sets, daily range): BP systolic 154–163; BP diastolic 49–62
--- NOTE | 2019-12-16 02:05 | NUR ---
PT A+O X4. PT HAS BEEN VERY ANXIOUS THE LAST 2 DAYS OBSERVED BY THIS RN. PT REPORTED HER PCP STARTED HER ON BUSPAR LAST WEEK "BUT IT REALLY HASNT BEEN HELPING." NOTIFIED DR SMITH. XANAX STARTED. PT ABLE TO RELAX AND FALL ASLEEP. TRACING SR BBB ON MONITOR. CALL LIGHT IN REACH. HOURLY ROUNDING FOR SAFETY.
[2019-12-16 04:56] LABS: ABSOLUTE BASOPHILS 0.1 thou/uL (0.0-0.2); ABSOLUTE EOSINOPHILS 0.1 thou/uL (0.0-0.7); ABSOLUTE LYMPHOCYTES 1.4 thou/uL (0.8-5.3); ABSOLUTE MONOCYTES 0.4 thou/uL (0.0-1.2); ABSOLUTE NEUTROPHILS 4.3 thou/uL (1.6-8.1); BASOPHILS 1.3 %; EOSINOPHILS 1.2 %; HEMATOCRIT 36.8 % (37.0-47.0); HEMOGLOBIN 12.2 gm/dL (12.0-15.0); LYMPHOCYTES 21.9 %; MCH 31.5 pg (26.0-34.0); MCV 95.3 fL (80.0-100.0); MONOCYTES 6.6 %; MPV 8.2 fl. (7.2-11.1); NUCLEATED RBCS 0 /100WBC; PLATELET COUNT* 334 thou/uL (150-400); RBC 3.86 mil/uL (4.20-5.00); RDW-CV 22.2 % (10.5-14.5); WBC 6.2 thou/uL (4.0-11.0)
[2019-12-16 05:39] LABS: CALCIUM 8.1 mg/dL (8.5-10.1); POTASSIUM 3.6 mmol/L (3.5-5.1)
[2019-12-16 06:53] LABS: PLATELET ESTIMATE ADEQUATE
[2019-12-16 06:54] LABS: ANISOCYTOSIS 1+
--- NOTE | 2019-12-16 09:41 | EKG ---
[place] [address] ELECTROCARDIOGRAM REPORT Name: MACKENZIE STODDARD Room: [address] ADM IN .R.#: [id number] Admission: 12/14/19 Attend Phys: Sj Richards, Discharge: Date of : 31 Date of Service: 12/15/19 0926 Report #: [id number] THIS REPORT FOR: //name// [facility] Test Date: 2019-12-15 Test Time: 09:26:42 Pat Name: MACKENZIE STODDARD Department: Room: [address] Gender: F Category Development Analyst: : 1935 Requested By: Vishnu Ren Order Number: [id number] Cheryl MD: Amado Peng Measurements Intervals [place] Rate: 60 P: 64 IN: 203 QRS: -53 QRSD: 137 T: QT: 414 QTc: 414 Interpretive Statements Sinus rhythm left axis LBBB Compared to ECG 12/14/2019 08:40:43 no change Electronically Signed On 12-16-2019 9:39:29 CDT by Amado Peng [email or web address] <ELECTRONICALLY SIGNED> By: Amado Peng MD, [facility] 12/16/19 0939 5 5 Amado Peng MD, [facility] /EPI
--- NOTE | 2019-12-16 13:17 | NUR ---
PATIENT IN STRESS TEST AT THIS TIME
--- NOTE | 2019-12-16 13:52 | NUR ---
SW called pt room and spoke with pt to complete initial assessment. Pt plans to be able to dc today pending completion of stress test. Pt lives at home alone. Pt has 5 children and she explained that one of her children is very supportive and helpful with getting groceries, etc. Pt has cane, RW, railings/grab bars, toilet riser. Pt has hx with [facility]. Pt discussed anxiety issues and SW provided emotional support. SW to continue to follow to assist with safe dc planning if needs arise.
[2019-12-16] MEDS ORDERED: BENADRYL ALLERG25 MG PO (15:29)
[2019-12-16] MEDS ORDERED: PROTONIX40 M2 PO (15:37)
--- NOTE | 2019-12-16 16:40 | CARDNUC ---
[place] [address] CARDIAC NUCLEAR IMAGING REPORT Name: MACKENZIE STODDARD Room: [address] IN [facility]#: [id number] Admission: 12/14/19 Attend Phys: Sj Richards, Discharge: Date of : 31 Date of Service: 12/16/19 1638 Report #: [id number] THIS REPORT FOR: cc: FAM - No family physician/PCP FAM - No family physician/PCP Darryl Hays MD [facility] ~ APPROVED REPORT Study performed: 12/15/2019 09:29:00 Indication: Chest pain, Troponin elevation, N/V. Patient Location: In-Patient Room #: [facility] Stress Tech: Martha Velazquez Stress Nurse: Grace Kingston RN Ht: 5 ft 7 in Wt: 140 lbs BSA: 1.74 m2 BMI: 21.92 Medical History Medical History: Angina, Fatigue, Former Smoker, HTN, Weakness, LBBB, N/V, increased troponin, NT-Pro BNP, Back surgery/pain, sacral pain. Medications: ASA 81 Mg, Carvedilol, Lisinopril, Maxzide, Hydralazine. Allergies: Codeine, Fentanyl. Cardiac Risk Factors: Age, FHX of CAD, HTN, Past Smoker, Chest pain, LBBB. Previous Cardiac Procedures: None Pretest Chest Pain Characteristics: No chest pain Exercise History: Sedentary Physical Disabilities: s/p back surgeryl, back pain, weakness. Meds Held (24 hrs): Carvedilol. Resting Data Rest SPECT myocardial perfusion imaging was performed in supine position 30 minutes following the intravenous injection of 11.0 mCi of Tc-99m Sestamibi. Time of rest injection: 12:30 The images were gated to evaluate regional wall motion and calculate left ventricular ejection fraction. Administration Route: IV Administration Site: [place] [address] CARDIAC NUCLEAR IMAGING REPORT Name: MACKENZIE STODDARD Room: [address]#: [id number] Admission: 12/14/19 Attend Phys: Sj Richards, Discharge: Date of : 31 Date of Service: 12/16/19 1638 Report #: [id number] Pharmacologic Stress Pharmacologic stress test was performed by injecting Regadenoson 0.4 mg IV push over 10-15 seconds immediately followed by the intravenous injection of 36.0 mCi of Tc-99m Sestamibi. Time of stress injection: 14:00 Administration Route: IV Administration Site: Right AC Heart Rate at time of stress injection: 111 bpm. Gated Stress SPECT was performed 40 minutes after stress injection. The images were gated to evaluate regional wall motion and calculate left ventricular ejection fraction. Stress Test Details Stress Test: Pharmacologic stress testing performed using 0.4 mg of regadenoson per 5 mL given IV over 10 seconds. Reason for pharmacologic stress test: s/p back surgery, back pain, weakness.. HR Max Heart Rate (APMHR): 134 bpm Resting HR: 62 bpm Target HR (85% APMHR): 113 bpm Max HR Achieved: 111 bpm % of APMHR: 82 Recovery HR: 88 bpm BP Resting BP: 187/69 mmHg Max BP: 144/66 mmHg Recovery BP: 161/66 mmHg ECG Resting ECG: Sinus Rhythm, LBBB Stress ECG: Sinus tachycardia, LBBB ST Change: None Arrhythmia: None Recovery ECG: Sinus Rhythm, LBBB Recovery ST Change: None Recovery Arrhythmia: None Clinical Reason for Termination: Completed protocol Stress Symptoms: Nausea, Abdominal discomfort, Dyspnea, N/V, Headache. Exercise duration: 00 min 00 sec Exercise capacity: 1.00 METs The patient tolerated Lexiscan infusion [place] [address] CARDIAC NUCLEAR IMAGING REPORT Name: LEOBARDO STODDARDCARLTONUriah Padron Room: [address]#: [id number] Admission: 12/14/19 Attend Phys: Sj Richards, Discharge: Date of : 31 Date of Service: 12/16/19 1638 Report #: [id number] Nurse Comments An 84 year old female inpatient presented for a sitting Lexiscan r/t chest pain, N/V, elevated troponin and NT-Pro BNP. Test well tolerated. Recovery unremarkable with PO caffeine, effective. Patient was escorted via wheelchair by staff to Nuclear Medicine for imaging. Patient was stable and stated she felt better at that time. Stress ECG Conclusion The baseline 12-lead EKG shows sinus rhythm with left bundle-branch block. EKGs obtained during and post Lexiscan infusion showed sinus rhythm and sinus tachycardia with left bundle-branch block. There were no stress-induced arrhythmias. Study Quality Study: Good Artifact: Mild Diaphragmatic attenuation and apical thinning Study Data At rest, the left ventricular ejection fraction was 63%.. Post stress, the left ventricular ejection was 64%.. TID = 1.03. Perfusion There is very minimal photopenia involving the inferior wall and apex on resting images that are less pronounced on stress images consistent with very mild diaphragmatic J relation artifact and apical thinning. Global perfusion appears preserved. There are no reversible defects identified. Wall Motion Normal left ventricular wall motion. Nuclear Conclusion ECG Findings: non-diagnostic Clinical Findings: negative for ischemia Nuclear Findings: negative for ischemia Exercise Capacity: not assessed Left Ventricular Function: normal Risk Study: low Perfusion images show no defect to suggest infarct or ischemia. Left ventricular systolic function appears normal on gated studies. This is a low risk study. <Conclusion> The baseline 12-lead EKG shows sinus rhythm with left bundle-branch [facility] [address] [place] [address] CARDIAC NUCLEAR IMAGING REPORT Name: MACKENZIE STODDARD Room: [address]#: [id number] Admission: 12/14/19 Attend Phys: Sj Richards, Discharge: Date of : 31 Date of Service: 12/16/19 1638 Report #: [id number] block. EKGs obtained during and post Lexiscan infusion showed sinus rhythm and sinus tachycardia with left bundle-branch block. There were no stress-induced arrhythmias. <ELECTRONICALLY SIGNED> By: Darryl Hays MD, FACC 12/16/19 1638 163 [id number] Darryl Hays MD, FACC /INF
--- NOTE | 2019-12-16 17:30 | NUR ---
PER DR SINGH, PATIENT OK TO GO FROM HIS STANDPOINT IF ABLE TO TOLERATE INTAKE WITHOUT NAUSEA OR VOMITTING. PATIENT ATE SOUP AT 1530, TOLERATED WELL WITH NO NAUSEA AND VOMITTING. WAS ABLE TO TAKE MEDICATIONS WITHOUT ANY N/V AND ATE MORE SOUP AT 1730 WELL WITH NO ISSUES.
--- NOTE | 2019-12-16 17:48 | NUR ---
PATIENT GIVEN ALL D/C INSTRUCTIONS. DAUGHTER TO OPERATIONS SUPERVISOR CHEMICAL CLEANING PATIENT AT 1845 TONIGHT. ALL BELONGINGS PACKED AND IV D/C. PRESCRIPTS GIVEN WITH CARE NOTES AND D/C PACKET. ALL QUESTIONS ANSWERED. DAUGTHER UPDATED.
== END 2019-12-16 18:40 | disposition home or self-care (01) | DRG 392 ==
LOC: M.ERS 08:20 → M.TBA-ER 11:25 → M.2W 11:25
PROVIDERS: Emergency Medicine Emergency Medical Services; ADMIT Internal Medicine
PROC: 0DJ08ZZ Inspection of Upper Intestinal Tract, Via Natural or Artificial Opening Endoscopic (ICD-10-PCS; principal; 2019-12-15)
DX: K29.00 Acute gastritis without bleeding (principal); E44.0 Moderate protein-calorie malnutrition; K29.50 Unspecified chronic gastritis without bleeding; I44.7 Left bundle-branch block, unspecified; I10 Essential (primary) hypertension; D47.3 Essential (hemorrhagic) thrombocythemia; F41.9 Anxiety disorder, unspecified; R79.89 Other specified abnormal findings of blood chemistry; R00.0 Tachycardia, unspecified; E86.0 Dehydration; K22.9 Disease of esophagus, unspecified; K31.89 Other diseases of stomach and duodenum; F32.9 Major depressive disorder, single episode, unspecified; Z96.642 Presence of left artificial hip joint; Z87.11 Personal history of peptic ulcer disease; Z90.710 Acquired absence of both cervix and uterus; Z79.82 Long term (current) use of aspirin; Z79.899 Other long term (current) drug therapy; Z88.5 Allergy status to narcotic agent; Z88.8 Allergy status to other drugs, medicaments and biological substances; Z87.891 Personal history of nicotine dependence; Z80.1 Family history of malignant neoplasm of trachea, bronchus and lung; Z68.22 Body mass index [BMI] 22.0-22.9, adult

== ENCOUNTER 2020-09-06 16:53 | Inpatient (IN) | payer OTHER ==
[~2020-09-06] VITALS: Ht 165.1 cm; Wt 66.2 kg
[~2020-09-06 16:53] MED LIST changes: +BENADRYL ALLERG25 MG PO; +BUSPIRONE HCL5 MG PO; +PROTONIX40 M2 PO
[2020-09-06 17:01] VITALS: BP 126/67
[2020-09-06 17:45] LABS: HEMATOCRIT 32.2 % (37.0-47.0); HEMOGLOBIN 10.5 gm/dL (12.0-15.0); MCH 30.2 pg (26.0-34.0); MCHC 32.5 g/dL (28.0-37.0); MCV 92.9 fL (80.0-100.0); MPV 8.2 fl. (7.2-11.1); NUCLEATED RBCS 0 /100WBC; PLATELET COUNT* 446 thou/uL (150-400); RBC 3.47 mil/uL (4.20-5.00); RDW-CV 22.7 % (10.5-14.5); WBC 8.2 thou/uL (4.0-11.0)
[2020-09-06 17:54] LABS: ALBUMIN 2.7 g/dL (3.4-5.0); CALCIUM 8.6 mg/dL (8.5-10.1); CREATININE 1.5 mg/dL (0.6-1.3); POTASSIUM 4.5 mmol/L (3.5-5.1); TOTAL BILIRUBIN 0.7 mg/dL (<0.1-1.0); TOTAL PROTEIN 7.5 g/dL (6.4-8.2)
[2020-09-06 18:18] LABS: ABSOLUTE EOSINOPHILS 0.1 thou/uL (0.0-0.7); ABSOLUTE LYMPHOCYTES 1.5 thou/uL (0.8-5.3); ABSOLUTE MONOCYTES 0.4 thou/uL (0.0-1.2); ABSOLUTE NEUTROPHILS 6.2 thou/uL (1.6-8.1); ANISOCYTOSIS 2+; GIANT PLATELETS FEW; PLATELET ESTIMATE INCREASED
[2020-09-06 18:19] LABS: OVALOCYTES Occasional; POLYCHROMASIA Occasional
[2020-09-06 20:04] LABS: URINE BILIRUBIN NEGATIVE (Negative); URINE BLOOD TRACE (Negative); URINE COLOR YELLOW; URINE GLUCOSE-RANDOM NEGATIVE (Negative); URINE KETONES NEGATIVE (Negative); URINE LEUKOCYTES 2+ (Negative); URINE NITRITE NEGATIVE (Negative); URINE PROTEIN 1+ (Negative)
[2020-09-06 20:05] LABS: URINE CLARITY HAZY
[2020-09-06 20:06] LABS: CASTS None Seen /LPF (None Seen); CRYSTALS None Seen /LPF (None Seen); SQUAMOUS 4-10 Moderate /LPF (0-3); URINE RBC 0-2 Rare /HPF (0-2); URINE WBC 6-15 Few /HPF (0-5)
[2020-09-06 20:38] VITALS: BP 98/45
[2020-09-06 21:26] VITALS: BP 106/47
[2020-09-06] MEDS ORDERED: AMBIEN5 MG PO (21:47)
[2020-09-07 01:28] VITALS: BP 90/54
[2020-09-07 04:36] LABS: HEMATOCRIT 31.2 % (37.0-47.0); HEMOGLOBIN 10.1 gm/dL (12.0-15.0); MCH 30.2 pg (26.0-34.0); MCHC 32.4 g/dL (28.0-37.0); MCV 93.2 fL (80.0-100.0); MPV 8.5 fl. (7.2-11.1); RBC 3.35 mil/uL (4.20-5.00); RDW-CV 22.8 % (10.5-14.5); WBC 6.7 thou/uL (4.0-11.0)
[2020-09-07 04:56] LABS: ALBUMIN 2.8 g/dL (3.4-5.0); CALCIUM 8.4 mg/dL (8.5-10.1); CREATININE 1.5 mg/dL (0.6-1.3); POTASSIUM 3.8 mmol/L (3.5-5.1); TOTAL BILIRUBIN 0.7 mg/dL (<0.1-1.0); TOTAL PROTEIN 7.7 g/dL (6.4-8.2)
[2020-09-07 04:57] VITALS: BP 98/40
[2020-09-07 08:00] VITALS: BP 124/44
--- NOTE | 2020-09-07 10:15 | EKG ---
[place] [address] ELECTROCARDIOGRAM REPORT Name: MACKENZIE STODDARD Room: [address] ADM IN .R.#: [id number] Admission: 09/06/20 Attend Phys: Paulina Gomez, Discharge: Date of : 31 Date of Service: 09/06/20 1734 Report #: [id number] THIS REPORT FOR: //name// [facility] ED Test Date: 2020-09-06 Test Time: 17:34:43 Pat Name: MACKENZIE STODDARD Department: Room: [facility] Gender: F Home Theater Installer: : 1935 Requested By: Ulices Sen Order Number: [id number] MD: Dom Miner Measurements Intervals [place] Rate: 78 P: 58 AR: 204 QRS: -53 QRSD: 136 T: 100 QT: 405 QTc: 462 Interpretive Statements Sinus arrhythmia Ventricular premature complex Left bundle branch block Baseline wander in lead(s) V2 Compared to ECG 12/15/2019 09:26:42 Ventricular premature complex(es) now present Sinus arrhythmia is noted Electronically Signed On 09-07-2020 10:15:28 GLASS RIBBON MACHINE OPERATOR ASSISTANT by Dom Miner [email or web address] <ELECTRONICALLY SIGNED> By: Dom Miner MD, [facility] 09/07/20 1015 1734 1734 Dom Miner MD, [facility] /EPI
--- NOTE | 2020-09-07 11:41 | NUR ---
Pt is A&O. Resides at home alone, per Pt, her 5 kids have been rotating staying with her since her fall. Pt has a walker and cane at home that she can use for mobility. Hx of [facility]. Hx of SNF at [facility]. CM spoke with Pt's dtr, dtr in agreement with SNF post dc, dtr researching which SNF family prefers, leaning towards [facility]. PT/OT ordered, await evals for recs. Dtr to contact CM back later this afternoon with SNF choices. Following.
[2020-09-07 12:02] VITALS: BP 109/53
[2020-09-07 16:30] VITALS: BP 104/45
--- NOTE | 2020-09-07 18:40 | NUR ---
RECEIVED REPORT. ASSUMED CARE OF PT AROUND 0730. AM ASSESSMENT AND VITALS COMPLETED CHARTED. MEDS PER EMAR. THERMOSPRAY OPERATOR IN PLACE. PAIN TO RIGHT KNEE MANAGED WITH PO PAIN MEDICATION WITH PARTIAL TO FULL RELIEF. FAMILY CALLED AND RECEIVED UPDATE. PT VERY PLESANT AND HOPEFUL TO GET BACK HOME SOON. PT CURRENTLY RESTING IN BED. CALL LIGHT IS WITHIN REACH. HOURLY ROUNDING PERFORMED. FALL PRECAUTIONS IN PLACE.
[2020-09-08 04:27] LABS: HEMATOCRIT 28.7 % (37.0-47.0); HEMOGLOBIN 9.5 gm/dL (12.0-15.0); MCH 30.5 pg (26.0-34.0); MCHC 33.1 g/dL (28.0-37.0); MCV 92.1 fL (80.0-100.0); MPV 8.6 fl. (7.2-11.1); RBC 3.11 mil/uL (4.20-5.00); RDW-CV 22.4 % (10.5-14.5); WBC 6.8 thou/uL (4.0-11.0)
[2020-09-08 04:47] LABS: ALBUMIN 2.4 g/dL (3.4-5.0); CALCIUM 7.7 mg/dL (8.5-10.1); CREATININE 1.2 mg/dL (0.6-1.3); POTASSIUM 3.8 mmol/L (3.5-5.1); TOTAL BILIRUBIN 0.7 mg/dL (<0.1-1.0); TOTAL PROTEIN 6.8 g/dL (6.4-8.2)
[2020-09-08 08:00] VITALS: BP 125/56
--- NOTE | 2020-09-08 14:08 | NUR ---
Therapies to see today, CM to fax referral to [facility]hemy [facility] once therapy evals available. Updated Pt's dtr.
[2020-09-08 14:12] VITALS: BP 97/36
[2020-09-08 14:13] VITALS: BP 110/34; BP 97/52
[2020-09-08 15:52] VITALS: BP 121/46
[2020-09-08 16:34] LABS: BE -3.5 mmol/L (-2 to +3); PCO2 VENOUS 28.6 mmHg (41.0-51.0); PO2 VENOUS 72.8 mmHg (35.0-45.0)
[2020-09-08 23:58] VITALS: BP 100/49
[2020-09-09 04:08] VITALS: BP 114/48
[2020-09-09 08:00] VITALS: BP 123/50
[2020-09-09 12:23] VITALS: BP 129/51
--- NOTE | 2020-09-09 13:07 | NUR ---
MIGEL spoke with Nohemy at [facility], they should have a SNF available on Monday. Per , anticipate dc in a few days, GI following
[2020-09-09 15:09] LABS: HEPATITIS B SURFACE AG Negative (Negative)
[2020-09-09 15:15] LABS: HEMATOCRIT 29.9 % (37.0-47.0); MCH 30.2 pg (26.0-34.0); WBC 7.9 thou/uL (4.0-11.0)
[2020-09-09 15:16] LABS: HEMOGLOBIN 9.7 gm/dL (12.0-15.0); MCHC 32.4 g/dL (28.0-37.0); MCV 93.2 fL (80.0-100.0); NUCLEATED RBCS 0 /100WBC; RBC 3.21 mil/uL (4.20-5.00); RDW-CV 23.5 % (10.5-14.5)
[2020-09-09 15:36] LABS: ALBUMIN 2.5 g/dL (3.4-5.0); CALCIUM 7.9 mg/dL (8.5-10.1); CREATININE 1.2 mg/dL (0.6-1.3); POTASSIUM 3.7 mmol/L (3.5-5.1); TOTAL BILIRUBIN 0.7 mg/dL (<0.1-1.0); TOTAL PROTEIN 7.1 g/dL (6.4-8.2)
[2020-09-09 15:51] LABS: ABSOLUTE LYMPHOCYTES 1.4 thou/uL (0.8-5.3); ABSOLUTE MONOCYTES 0.7 thou/uL (0.0-1.2); ABSOLUTE NEUTROPHILS 5.8 thou/uL (1.6-8.1)
[2020-09-09 15:52] LABS: OVALOCYTES 1+
[2020-09-09 15:53] LABS: ANISOCYTOSIS 2+
[2020-09-09 15:54] LABS: GIANT PLATELETS FEW; HYPOCHROMASIA Occasional
[2020-09-09 15:55] LABS: PLATELET ESTIMATE ADEQUATE
[2020-09-09 15:57] LABS: MICROCYTES 1+; POIKILOCYTOSIS 1+
[2020-09-09 15:58] LABS: PLATELET COUNT* 509 thou/uL (150-400)
[2020-09-09 16:18] VITALS: BP 133/59
--- NOTE | 2020-09-09 18:55 | NUR ---
RECEIVED REPORT. ASSUMED CARE OF PT AROUND 0730. AM ASSESSMENT AND VITALS COMPLETED CHARTED. MEDS PER EMAR. TRIMMER TAILER IN PLACE. PT BECAME MORE CONFUSED AND FEBRILE THIS AFTERNOON - DR MORRISSEY AND FAMILY UDATED BY THIS RN AND DR JADE (SPOKE TO DAUGHTER XANDER BUTLER). PT UP WITH ASSISTANCE TO BSC FOR MULTIPLE BMS THIS SHIFT AND TO VOID. FLUIDS INFUSING. PT UP TO BEDSIDE CHAIR FOR MEALS, REMAINS AFRAID OF FALLING. RIGHT KNEE WRAPPED WITH ABBEY WRAP. PT CURRENTLY SLEEPING IN BED. FALL PRECAUTIONS IN PLACE. CALL LIGHT IS WITHIN REACH. HOURLY ROUNDING PERFORMED. PLAN IS FOR PT TO DC TO [facility].
[2020-09-09 21:00] VITALS: BP 117/52
[2020-09-10] VITALS: BP 126/53
[2020-09-10 04:00] VITALS: BP 148/69
[2020-09-10 04:17] LABS: CALCIUM 7.4 mg/dL (8.5-10.1); POTASSIUM 3.8 mmol/L (3.5-5.1)
[2020-09-10 08:08] VITALS: BP 149/64
--- NOTE | 2020-09-10 09:16 | NUR ---
ASSUMED CARE OF PT THIS AM AROUND 07- COMPACTOR DRIVER IN PLACE ORDERED, TRACING SR- UPON ASSESSMENT PT NOTED TO BE RESTING IN BED- PT A&O X4- CONT OF B/B- ASSIST X1 WITH TRANSFERS, USING RW- DIMINISHED LUNG SOUNDS NOTED, DYSPNEA NOTED ON EXERTION- VSS, O2 SAT 97% ON RA- ABD SOFT/ROUND/NON-TENDER, BS X4 QUADS- BM NOTED THIS AM- IV NOTED TO LEFT FA INTACT AND SL, IV ABT GIVEN THIS AM PRESCRIBED- GOOD PO INTAKE NOTED THIS AM WITH BREAKFAST- RIGHT KNEE NOTED WITH SIGNIFICANT BRUISING AND NOTED SWELLING, ABBEY WRAP IN PLACE AND ICE APPLIED THIS AM- PT UP TO BED SIDE CHAIR THIS AM, LEG ELEVATION IN PLACE- CALL LIGHT AND PERSONAL BELONGINGS WITH IN REACH- ALL NEEDS MET AT THIS TIME-WCTM
--- NOTE | 2020-09-10 15:37 | NUR ---
Plan dc tomorrow to [facility], updated Pt and dtr. Faxed updated therapy evals. [facility] p:[phone] f:[phone]
[2020-09-10 16:38] VITALS: BP 142/57
[2020-09-10 20:00] VITALS: BP 142/60
[2020-09-11 00:05] VITALS: BP 129/61
[2020-09-11 03:59] VITALS: BP 153/68
[2020-09-11 08:00] VITALS: BP 130/64
[2020-09-11 09:55] VITALS: BP 130/64
[2020-09-11] MEDS ORDERED: METOPROLOL TART25 MG PO (10:02)
[2020-09-11] MEDS ORDERED: CEFDINIR300 MG PO (10:02)
--- NOTE | 2020-09-11 11:39 | NUR ---
Pt discharging to [facility] today, facility to [facility]er pick and transport at 430pm. Faxed dc orders. Repeat rapid covid to be administered, will fax results once received. Chart copied. Nurse report number is [phone]. CM updated Pt's dtr, dtr dropped off clothing at [facility].
[2020-09-11 14:27] LABS: CALCIUM 7.9 mg/dL (8.5-10.1); CREATININE 1.1 mg/dL (0.6-1.3); POTASSIUM 3.6 mmol/L (3.5-5.1)
--- NOTE | 2020-09-11 16:36 | NUR ---
RECIEVED REPORT AROUND 714. ASSUMED CARE. IV INTACT LEFT FOREARM. MED/SURG STATUS. PT STATED "IM JUST SLEEPY" THIS AM. MEDS GIVEN PER MAR HOURLY ROUNDING PERFORMED. [facility] CALLED GAVE REPORT TO STEFFEN. DISCHARGE ORDERS RECIEVED. IV TAKEN OUT. PT UP WITH A WALKER. VS AND ASSESSMENT CHARTED. PT LEFT VIA WHEELCHAIR WITH WHEELCHAIR SERVICE AT 1617 AND ALL BELONGINGS. DISCHARGE PACKET GIVEN TO JOE.
== END 2020-09-11 16:20 | DRG 441 ==
LOC: M.ERS 16:53 → M.2W 18:32 → M.TBA-ER 18:32 → M.2W 20:27
PROVIDERS: Emergency Medicine; Internal Medicine; ADMIT Internal Medicine; ATTEND Internal Medicine
PROC: 0S9C3ZZ Drainage of Right Knee Joint, Percutaneous Approach (ICD-10-PCS; principal; 2020-09-08)
DX: B17.9 Acute viral hepatitis, unspecified (principal); N17.0 Acute kidney failure with tubular necrosis; G93.41 Metabolic encephalopathy; N39.0 Urinary tract infection, site not specified; M62.82 Rhabdomyolysis; S80.01XA Contusion of right knee, initial encounter; Z96.641 Presence of right artificial hip joint; Z96.642 Presence of left artificial hip joint; I10 Essential (primary) hypertension; D47.3 Essential (hemorrhagic) thrombocythemia; Z60.2 Problems related to living alone; Z20.822 Contact with and (suspected) exposure to COVID-19; Z88.6 Allergy status to analgesic agent; Z88.8 Allergy status to other drugs, medicaments and biological substances; Z79.82 Long term (current) use of aspirin; Z79.899 Other long term (current) drug therapy; Z90.710 Acquired absence of both cervix and uterus; W18.39XA Other fall on same level, initial encounter; Y93.89 Activity, other specified; Y92.098 Other place in other non-institutional residence as the place of occurrence of the external cause; Y99.8 Other external cause status

== ENCOUNTER 2020-12-17 16:14 | Inpatient (IN) | payer OTHER ==
[~2020-12-17] VITALS: Ht 170.2 cm; Wt 59.4 kg
[~2020-12-17 16:14] MED LIST changes: +AMBIEN5 MG PO; +CEFDINIR300 MG PO; +METOPROLOL TART25 MG PO
[2020-12-17 16:21] VITALS: BP 134/83
[2020-12-17 17:00] LABS: HEMATOCRIT 36.8 % (37.0-47.0); HEMOGLOBIN 11.5 gm/dL (12.0-15.0); MCH 24.1 pg (26.0-34.0); MCHC 31.3 g/dL (28.0-37.0); MCV 76.7 fL (80.0-100.0); MPV 7.5 fl. (7.2-11.1); NUCLEATED RBCS 0 /100WBC; PLATELET COUNT* 491 thou/uL (150-400); RDW-CV 21.9 % (10.5-14.5); WBC 10.1 thou/uL (4.0-11.0)
[2020-12-17 17:08] LABS: CALCIUM 8.5 mg/dL (8.5-10.1); CREATININE 0.9 mg/dL (0.6-1.3); POTASSIUM 3.9 mmol/L (3.5-5.1)
[2020-12-17 17:19] LABS: ALBUMIN 2.5 g/dL (3.4-5.0); TOTAL BILIRUBIN 0.6 mg/dL (<0.1-1.0); TOTAL PROTEIN 8.5 g/dL (6.4-8.2)
[2020-12-17 17:45] LABS: ABSOLUTE BASOPHILS 0.3 thou/uL (0.0-0.2); ABSOLUTE LYMPHOCYTES 1.1 thou/uL (0.8-5.3); ABSOLUTE MONOCYTES 0.5 thou/uL (0.0-1.2); ABSOLUTE NEUTROPHILS 8.2 thou/uL (1.6-8.1)
[2020-12-17 17:46] LABS: PLATELET ESTIMATE ADEQUATE
[2020-12-17 17:47] LABS: ANISOCYTOSIS 2+; LARGE PLATELETS FEW
[2020-12-17 17:48] LABS: MICROCYTES 1+
[2020-12-17 17:51] LABS: POIKILOCYTOSIS 1+; POLYCHROMASIA Occasional
[2020-12-17 20:05] VITALS: BP 147/71
[2020-12-17 20:38] VITALS: BP 139/70
[2020-12-18] VITALS (7 sets, daily range): BP systolic 103–128; BP diastolic 47–57
--- NOTE | 2020-12-18 00:44 | NUR ---
ASSUMED CARE OF PT AT 1900. PT IS ALERT AND ORIENTED. VSS. PERRLA. NO COMPLAINTS OF PAIN. PT HAS ORTHOPNEA WHEN LYING DOWN. PT IS IN SINUS RYTHM ON THE TELEMETRY. PT IS RESTING COMFORTABLY IN BED. RESPIRATIONS ARE EVEN AND NONLABORED. WILL CONTINUE TO MONITOR PT.
--- NOTE | 2020-12-18 00:47 | NUR ---
ASSUMED CARE OF PT AT 2030 FROM THE ER. PT IS ALERT AND ORIENTED. PERRLA. PT DENIES CHEST PAIN. PT IS ON 2 LITERS. VSS. PT IS IN SINUS RYTHM ON THE TELEMETRY. PT IS RESTING COMFORTABLY IN BED. RESPIRATIONS ARE EVEN AND NONLABORED. WILL CONTINUE TO MONITOR PT.
[2020-12-18 04:35] LABS: HEMATOCRIT 33.7 % (37.0-47.0); HEMOGLOBIN 10.4 gm/dL (12.0-15.0); MCH 23.9 pg (26.0-34.0); MCV 77.3 fL (80.0-100.0); MPV 7.8 fl. (7.2-11.1); RBC 4.36 mil/uL (4.20-5.00); RDW-CV 21.6 % (10.5-14.5); WBC 8.9 thou/uL (4.0-11.0)
[2020-12-18 04:47] LABS: POTASSIUM 3.6 mmol/L (3.5-5.1)
--- NOTE | 2020-12-18 11:14 | 2DMMODE ---
[place] [address] 2 D/M-MODE ECHOCARDIOGRAM Name: MACKENZIE STODDARD Room: [address] IN [facility]#: [id number] Admission: 12/17/20 Attend Phys: Kamilla Santamaria MD Discharge: Date of : 31 Date of Service: 12/18/20 1113 Report #: [id number] THIS REPORT FOR: cc: Kristie Multani Mohammad K. DO Holkins, John M. MD [facility] ~ APPROVED REPORT Study performed: 12/18/2020 09:35:06 EXAM: Comprehensive 2D, Doppler, and color-flow Echocardiogram Patient Location: In-Patient Room #: 133 Status: routine BSA: 1.70 HR: 92 bpm BP: 128/57 mmHg Rhythm: NSR Other Information Study Quality: Good Indications Dyspnea 2D Dimensions IVSd: 13.77 (7-11mm) LVOT Diam: 19.18 (18-24mm) LVDd: 46.76 mm PWd: 12.45 (7-11mm) Ascending Ao: 29.69 (22-36mm) LVDs: 30.78 (25-40mm) Aortic Root: 29.50 mm Volumes Left Atrial Volume (Systole) LA ESV Index: 27.70 mL/m2 Aortic Valve AoV Peak Yeyo.: 1.51 m/s AO Peak Gr.: 9.11 mmHg LVOT Max P.17 mmHg AO Mean Gr.: 5.41 mmHg LVOT Mean P.92 mmHg LVOT Max V: 1.02 m/s AO V2 VTI: 26.02 cm LVOT Mean V: 0.64 m/s [place] (VTI): 1.90 cm2 LVOT V1 VTI: 17.07 [place] [address] 2 D/M-MODE ECHOCARDIOGRAM Name: LEOBARDO STODDARDCARLTONUriah Nereida Room: [address] IN [facility]#: [id number] Admission: 12/17/20 Attend Phys: Kamilla Santamaria MD Discharge: Date of : 31 Date of Service: 12/18/20 1113 Report #: [id number] Mitral Valve E/A Ratio: 0.90 MV Decel. Time: 178.19 ms MV E Max Yeyo.: 0.66 m/s MV PHT: 51.67 ms MVA (PHT): 4.26 cm2 TDI E/Lateral E': 5.08 Lateral E' Yeyo.: 0.13 m/s Left Ventricle The left ventricle is normal size. There is moderate diffuse hypokinesis of LV wall motion. Mild concentric left ventricular hypertrophy. Left ventricular systolic function is moderately decreased. LVEF is 40%. Grade I - abnormal relaxation pattern. Right Ventricle The right ventricle is normal size. The right ventricular systolic function is normal. Atria The left atrium size is normal. The right atrium size is normal. Aortic Valve Mild aortic valve sclerosis. Mild to moderate aortic regurgitation. No hemodynamically significant valvular aortic stenosis. Mitral Valve The mitral valve is normal in structure. Mild mitral regurgitation. No evidence of mitral valve stenosis. Tricuspid Valve The tricuspid valve is normal in structure. Unable to assess PA pressure. Trace tricuspid regurgitation. Pulmonic Valve The pulmonary valve is normal in structure. Trace pulmonic regurgitation. Great Vessels The aortic root is normal in size. IVC is normal in size and collapses >50% with [place] [address] 2 D/M-MODE ECHOCARDIOGRAM Name: LEOBARDO STODDARDCARLTONUriah Padron Room: [address] IN [facility]#: [id number] Admission: 12/17/20 Attend Phys: Kamilla Santamaria MD Discharge: Date of : 31 Date of Service: 12/18/20 1113 Report #: [id number] There is no pericardial effusion. <Conclusion> The left ventricle is normal size. Mild concentric left ventricular hypertrophy. Left ventricular systolic function is moderately decreased. LVEF is 40%. Grade I - abnormal relaxation pattern. The right ventricle is normal size. The left atrium size is normal. Mild aortic valve sclerosis. Mild to moderate aortic regurgitation. No hemodynamically significant valvular aortic stenosis. The mitral valve is normal in structure. Mild mitral regurgitation is noted The tricuspid valve is normal in structure. IVC is normal in size and collapses >50% with inspiration. There is no pericardial effusion. There is moderate diffuse hypokinesis of LV wall motion. <ELECTRONICALLY SIGNED> By: Dom Miner MD, FACC 12/18/20 1113 111 111 Dom Miner MD, FACC /INF
--- NOTE | 2020-12-18 13:56 | NUR ---
Pt is A&O. Resides at home alone. Independent. Kids stay with Pt prn. Pt has a walker and cane that she can use for mobility. Hx of [facility]. Hx of skilled at [facility] and Sarah BS. Cards following, echo planned for today. ?chf, trops up. Anticipate dc in a few days. ?HH
--- NOTE | 2020-12-18 16:14 | NUR ---
ASSUMED PT CARAE AT 0730. PT IS PLEASANTLY A&OX4.ASSESSMENT COMPLETED AND PT DENIES ANY CHEST PAIN OR DIZZINESS AT THIS TIME. PT WAS ON 2L PER NC AND WEANED OFF, NOW ON RA AND MAINTAINING SATS IN UPPER 90'S. PT ASSISTED X1 UP IN CHAIR. PT COMPLIANT WITH 2000 ML FLUID RESTRICTION. I&O MONITORED. 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 ALL MEDICATIONS ADMINISTERED ORDERED.
--- NOTE | 2020-12-18 23:23 | NUR ---
ASSUMED CARE OF PT AT 1900. PT IS ALERT AND ORIENTED. VSS. PERRLA. PT REPORTS ONGOING BACK PAIN. PT IS IN SINUS RYTHM ON THE TELEMETRY. PT IS RESTING COMFORTABLY IN BED. RESPIRATIONS ARE EVEN AND NONLABORED. WILL CONTINUE TO MONITOR PT.
[2020-12-19 03:39] VITALS: BP 121/50
[2020-12-19 08:00] VITALS: BP 106/53
[2020-12-19 09:09] LABS: HEMATOCRIT 35.9 % (37.0-47.0); HEMOGLOBIN 11.3 gm/dL (12.0-15.0); MCH 23.9 pg (26.0-34.0); MCHC 31.4 g/dL (28.0-37.0); MCV 76.3 fL (80.0-100.0); RBC 4.7 mil/uL (4.20-5.00); RDW-CV 21.7 % (10.5-14.5); WBC 8.6 thou/uL (4.0-11.0)
[2020-12-19 09:22] LABS: CALCIUM 9.6 mg/dL (8.5-10.1); POTASSIUM 4.2 mmol/L (3.5-5.1)
[2020-12-19 12:00] VITALS: BP 106/42
[2020-12-19 16:00] VITALS: BP 106/42
[2020-12-19 19:50] VITALS: BP 97/62
--- NOTE | 2020-12-19 20:52 | NUR ---
I ASSUMED CARE OF THE PATIENT AT 0700. SHE IS ALERT AND ORIENTED X4, AND UP WITH SBA AND A WALKER. BED IS IN THE LOW LOCKED POSITION AND CALL LIGHT IS IN REACH. PATIENT NEEDS ARE MET DURING HOURLY ROUNDING AND PAIN IS MANAGED WITH PRN MEDS AND KPAD. SHE IS CONCERNED ABOUT NOT HAVING ANY CLOTHES TO WEAR HOME AND WOULD LIKE TERESE (DAUGHTER) TO KNOW. WILL CONTINUE TO MONITOR.
[2020-12-19 23:45] VITALS: BP 111/48
--- NOTE | 2020-12-20 01:46 | NUR ---
ASSUMED CARE OF PT AT 1900. PT IS ALERT AND ORIENTED. VSS. PERGEMA. PT IS ON ROOM AIR. PT IS IN SINUS RYTHM ON THE TELEMETRY. PT IS RESTING COMFORTABLY IN BED. RESPIRATIONS ARE EVEN AND NONLABORED. WILL CONTINUE TO MONITOR PT.
[2020-12-20 04:00] VITALS: BP 124/51
[2020-12-20 08:00] VITALS: BP 125/68
[2020-12-20] MEDS ORDERED: LASIX 20 MG TAB20 MG PO (09:00)
[2020-12-20 14:50] VITALS: BP 125/68
--- NOTE | 2020-12-20 19:35 | NUR ---
patient already d/c today, d/c with all personal belongings. IV d/c, heart monitor taken off, patient verbalized understanding of instructions, new script. d/c with daughter by wheelchair.
--- NOTE | 2020-12-21 10:27 | EKG ---
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 : 1935 Requested By: Yan Paz Order Number: [id number] MD: Amado Peng Measurements Intervals [place] Rate: 124 P: 209 TN: 138 QRS: -52 QRSD: 138 T: 123 QT: 321 QTc: 461 Interpretive Statements Sinus or ectopic atrial tachycardia Multiple ventricular premature complexes Left bundle branch block Baseline wander in lead(s) V5 Compared to ECG 09/06/2020 17:34:43 Sinus arrhythmia no longer present Electronically Signed On 12-21-2020 10:27:09 CDT by Amado Peng [email or web address] <ELECTRONICALLY SIGNED> By: Amado Peng MD, [facility] 12/21/20 1027 162 162 Amado Peng MD, [facility] /EPI
--- NOTE | 2020-12-21 16:25 | EKG ---
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: AT : 1935 Requested By: Emir Rivas Order Number: [id number] Reading MD: Amado Peng Measurements Intervals [place] Rate: 80 P: 111 [place]: 196 QRS: 239 QRSD: 136 T: 54 QT: 423 QTc: 488 Interpretive Statements Right and left arm electrode reversal, interpretation assumes no reversal Sinus rhythm Nonspecific intraventricular conduction delay Abnormal lateral Q waves nonspecific st segment changes Compared to ECG 12/17/2020 16:21:2 rate increased Ventricular premature complex(es) no longer present Left bundle-branch block no longer present Electronically Signed On 12-21-2020 16:25:06 CDT by Amado Peng [email or web address] <ELECTRONICALLY SIGNED> By: Amado Peng MD, [facility] 12/21/20 1625 1450 1450 Amado Peng MD, [facility] /EPI
== END 2020-12-20 16:25 | disposition home or self-care (01) | DRG 291 ==
LOC: M.ERS 16:14 → M.2W 17:57 → M.TBA-ER 17:57 → M.2W 19:26
PROVIDERS: Emergency Medicine Emergency Medical Services; ADMIT Family Medicine; ATTEND Family Medicine
DX: I11.0 Hypertensive heart disease with heart failure (principal); J96.01 Acute respiratory failure with hypoxia; E87.1 Hypo-osmolality and hyponatremia; J81.1 Chronic pulmonary edema; I50.43 Acute on chronic combined systolic (congestive) and diastolic (congestive) heart failure; I42.9 Cardiomyopathy, unspecified; D47.3 Essential (hemorrhagic) thrombocythemia; I35.0 Nonrheumatic aortic (valve) stenosis; M06.9 Rheumatoid arthritis, unspecified; G89.29 Other chronic pain; M54.9 Dorsalgia, unspecified; K21.9 Gastro-esophageal reflux disease without esophagitis; Z20.822 Contact with and (suspected) exposure to COVID-19; Z96.642 Presence of left artificial hip joint; Z79.82 Long term (current) use of aspirin; Z90.710 Acquired absence of both cervix and uterus; Z79.899 Other long term (current) drug therapy; Z88.5 Allergy status to narcotic agent; Z88.8 Allergy status to other drugs, medicaments and biological substances